=== PATIENT | female | born 1990 | race Caucasian/White ===

== ENCOUNTER → 2017-01-25 | Outpatient (CLI) | payer OTHER ==
--- NOTE | 2017-01-25 12:16 | REP ---
OBSTETRIC SONOGRAPHY: HISTORY: Supervision of for anatomy. FINDINGS: Scanning through the gravid uterus demonstrates a viable single intrauterine gestation in a cephalic lie. motion is observed and heart rate is recorder 141 beats per minute. An anterior left lateral placenta is seen grade 0 without evidence of previa or abruption. Amniotic fluid is subjectively normal. Closed cervical length measured transabdominally is 3.8 cm. No extrauterine abnormality is observed. There is an echogenic focus in the left ventricle likely chordae tendineae. There is mild pyelectasis of the kidneys, 5 mm in AP dimension bilaterally. Consider urinary tract sonography. gender is felt to be female. Four-chamber heart and outflow tract views show evidence of small pericardial effusion. Outflow tract views are somewhat atypical. No chamber dilation is seen. The following anatomic structures are identified and felt to be unremarkable: cranium, choroid plexus, cavum, cerebellum and posterior fossa, face and profile, lungs, diaphragm, left-sided stomach, abdominal wall cord insertion, three-vessel umbilical cord, urinary bladder, spine, and upper and lower extremities. Biometry Chart: BPD 4.8 cm = 20 weeks 4 days. HC 18.0 cm = 20 weeks 3 days AC 16.0 cm = 21 weeks 1 day FL 3.3 cm = 20 weeks 1 day HC/AC ratio normal 1.13. Cephalic index normal 0.74. Estimated weight 368 grams, 0 pounds 12 ounces, 32nd percentile for 21 weeks 1 day. IMPRESSION: 1. Viable single intrauterine gestation at 20 weeks 2 days by today's composite sonographic criteria. ADIS by today's criteria June 12, 2017. 2. Images of the heart show atypical appearance of the outflow tracts and evidence of pericardial effusion. Suggest follow-up scan, medicine evaluation. There is an echogenic focus in the left ventricle. Mild bilateral renal pyelectasis is observed.
== END ==
LOC: M WHC 09:06
PROVIDERS: ATTEND Nurse Practitioner Women's Health
DX: Z36 Encounter for antenatal screening of mother (principal); Z3A.21 21 weeks gestation of pregnancy